=== PATIENT | female | born 1970 | race Caucasian/White ===

== ENCOUNTER 2020-03-09 15:10 | Emergency (ER) | payer SELFPAY ==
[2020-03-09 16:00] LABS: #Basophils 0.1 thou/uL (0.0-0.2); #Eosinphils 0.2 thou/uL (0.0-0.7); #Lymphocytes 3.7 thou/uL (1.20-3.40); #Monocytes 0.6 thou/uL (0.11-0.59); #Neutrophils 7.7 thou/uL (1.40-6.50); %Basophils 0.6 % (0.0-1.0); %Eosinophils 1.3 % (0.0-10.0); %Monocytes 5.2 % (0.0-10.0); %Neutrophils 62.8 % (42.0-75.0); Hemoglobin 14.9 g/dL (12.0-16.0); Mean Corpuscular HGB CONC 33.4 g/dL (32.0-36.0); Mean Corpuscular Hemoglobin 29.4 pg (27.0-31.0); Mean Corpuscular Volume 88.1 fL (78.0-98.0); Mean Platelet Volume 7.1 fL (7.4-10.4); Platelet Count 428 thou/uL (130-400); RBC Distribution Width 11.2 % (11.5-14.5); Red Blood Cell (RBC) Count 5.06 mill/uL (4.20-5.40); White Blood Cell (WBC) Count 12.2 thou/uL (4.8-10.8)
--- NOTE | 2020-03-09 16:15 | RAD ---
RIGHT FOOT THREE VIEWS: History: Foot ulcer Comparison: None FINDINGS: There is extensive soft tissue swelling surrounding the distal phalanx of the second toe. There appea r to be open wound of the distal phalanx second toe plantar aspect. No underlying osseous erosion is appreciated. Capsular calcifications along the lateral aspect of the great toe metatarsal phalangeal joint. Bone i sland of the second metatarsal head and neck. Large dorsal and plantar calcaneal spurs. Osseous erosion at the achilles insertion. IMPRESSION: Soft tissue swelling and what appears to be a bandage with radiopaque debris along the plantar aspect of the second toe distal phalanx. No underlying osseous erosions to suspect radiographic evidence of osteomyelitis. If clinically warranted, MR should be obtained. POS: GERTRUDIS
[2020-03-09 16:19] LABS: ALT (SGPT) 28 U/L (8-55); AST (SGOT) 16 U/L (5-34); Albumin 3.6 g/dL (3.5-5.0); Alkaline Phosphatase 269 U/L (40-110); Anion Gap 14 mmol/L (10-20); BUN (Urea Nitrogen) 14 mg/dL (7.0-18.7); Bilirubin, Total 0.6 mg/dL (0.2-1.2); CK (CPK) 109 U/L (29-168); CRP (Inflammatory) 1.18 mg/dL (= or < 0.5); Calc. Creatinine Clearance 0 mL/min (70-130); Carbon Dioxide 25 mmol/L (22-29); Chloride 101 mmol/L (98-107); Estimated GFR-MDRD 74; Globulin 3.8 g/dL (2.4-3.5); Glucose 286 mg/dL (70-105); Potassium 4.1 mmol/L (3.5-5.1); Protein, Total 7.4 g/dL (6.0-8.3); Sodium 136 mmol/L (136-145)
[2020-03-09] MEDS ORDERED: Cephalexin 250 MG CAP ONE (17:23)
[2020-03-09] MEDS ORDERED: Sulfameth/Trimethoprim DS 800-160mg TAB ONE (17:23)
== END 2020-03-09 17:44 | disposition home or self-care (01) ==
LOC: ERS 15:10
DX: E11.621 Type 2 diabetes mellitus with foot ulcer (principal); L97.519 Non-pressure chronic ulcer of other part of right foot with unspecified severity; E11.65 Type 2 diabetes mellitus with hyperglycemia; I10 Essential (primary) hypertension; E78.5 Hyperlipidemia, unspecified; F41.9 Anxiety disorder, unspecified
CPT/HCPCS: 36415; 80053; 82550; 85025; 86140

== ENCOUNTER 2020-03-26 15:05 | Emergency (ER) | payer SELFPAY ==
[~2020-03-26 15:05] MED LIST: Iopamidol-370 76% 500 ML 1 ML ONE
[2020-03-26] MEDS ORDERED: Morphine 4 MG/ML VIAL ONE (15:57)
[2020-03-26 16:02] LABS: #Basophils 0.1 thou/uL (0.0-0.2); #Eosinphils 0.2 thou/uL (0.0-0.7); #Lymphocytes 3.6 thou/uL (1.20-3.40); #Monocytes 0.7 thou/uL (0.11-0.59); #Neutrophils 6.8 thou/uL (1.40-6.50); %Basophils 0.6 % (0.0-1.0); %Eosinophils 1.8 % (0.0-10.0); %Lymphocytes 31.6 % (21.0-51.0); %Monocytes 6.3 % (0.0-10.0); %Neutrophils 59.8 % (42.0-75.0); Hemoglobin 14.1 g/dL (12.0-16.0); Mean Corpuscular HGB CONC 32.8 g/dL (32.0-36.0); Mean Corpuscular Hemoglobin 29.3 pg (27.0-31.0); Mean Corpuscular Volume 89.2 fL (78.0-98.0); Mean Platelet Volume 7.6 fL (7.4-10.4); Platelet Count 330 thou/uL (130-400); Red Blood Cell (RBC) Count 4.81 mill/uL (4.20-5.40); White Blood Cell (WBC) Count 11.4 thou/uL (4.8-10.8)
--- NOTE | 2020-03-26 16:10 | RAD ---
CHEST ONE VIEW: 03/26/20 INDICATION: History of emergency room examination. COMPARISON: Prior exam dated 10/04/19. FINDINGS: Lungs are clear. Heart size is normal. No acute osseous abnormality is evident. IMPRESSION: No acute cardiopulmonary abnormality. POS: BH
[2020-03-26 16:15] LABS: BHCG - Serum Negative (NEGATIVE); Pregs Control Background? CLEAR/WHITE (CLR/WHITE); Pregs Control Bar Appear? YES (CONTROL BAR)
[2020-03-26 16:24] LABS: ALT (SGPT) 36 U/L (8-55); AST (SGOT) 20 U/L (5-34); Albumin 3.8 g/dL (3.5-5.0); Alkaline Phosphatase 146 U/L (40-110); Anion Gap 12 mmol/L (10-20); BUN (Urea Nitrogen) 17 mg/dL (7.0-18.7); Bilirubin, Total 0.7 mg/dL (0.2-1.2); CK (CPK) 84 U/L (29-168); Calc. Creatinine Clearance 0 mL/min (70-130); Carbon Dioxide 26 mmol/L (22-29); Chloride 103 mmol/L (98-107); Estimated GFR-MDRD 60; Globulin 3.4 g/dL (2.4-3.5); Glucose 373 mg/dL (70-105); Protein, Total 7.2 g/dL (6.0-8.3); Sodium 137 mmol/L (136-145)
[2020-03-26] MEDS ORDERED: Lisinopril 10 MG TAB ONE (16:36)
[2020-03-26 16:44] LABS: Bilirubin Negative (Negative); Blood, Urine Trace (Negative); Clarity Clear (Clear); Glucose, Urine (Dipstick) Greater than 1000 mg/dL (Negative); Leukocyte Negative Leu/uL (Negative); Nitrite 1+ (Negative); Protein, Urine (Dipstick) Negative (Neg-Trace); RBC/HPF 0-3 HPF (0-3); Squamous Epithelial 0-3 HPF (0-3); Urobilinogen Normal mg/dL (Less than 2); WBC/HPF 0-3 HPF (0-3)
[2020-03-26 16:51] LABS: Bacteria/HPF 1+ HPF (None Seen)
--- NOTE | 2020-03-26 19:43 | CT ---
CTA OF THE ABDOMEN AND PELVIS WITH BILATERAL LOWER EXTREMITY RUNOFF 03/26/20 INDICATION: 50-year-old female with bilateral leg pain, right greater than left that started last night. Worsened throughout the night and into today. History of hypertension, diabetes. COMPARISON: None. TECHNIQUE: Multiple CTA images were obtained in an abdomen and pelvis with bilateral lower extremity runoff. Con trast was administered. 3D reformatted images were constructed from the raw data. FINDINGS: No hemodynamically significant stenosis, occlusion or aneurysmal formation is evident within the abdo men or pelvis. Arterial structures of both lower extremities demonstrate no focal hemodynamically sig nificant stenosis or occlusion. There is some mild atherosclerotic irregularity involving the distal right SFA and right popliteal artery. There is three vessel runoff to the level of the ankle bilatera lly. No definite acute abnormality is seen within the abdomen or pelvis. The gallbladder is surgically abs ent. The liver, pancreas, spleen, adrenal glands and kidneys are normal appearing. No free fluid, enlarged lymph nodes are evident. There is a normal appendix. There is moderate amount of retained stool within the colon. There are scattered degenerative and osteoarthritic changes. No definite acute osseous abnormality is evident. IMPRESSION: No hemodynamically significant stenosis, occlusion or aneurysmal formation demonstrated. POS: BH
== END 2020-03-26 17:25 | disposition home or self-care (01) ==
LOC: ERS 15:05
DX: M79.604 Pain in right leg (principal); M79.605 Pain in left leg; I10 Essential (primary) hypertension; E11.65 Type 2 diabetes mellitus with hyperglycemia; N39.0 Urinary tract infection, site not specified; I20.9 Angina pectoris, unspecified; E78.5 Hyperlipidemia, unspecified; F41.9 Anxiety disorder, unspecified; Z79.899 Other long term (current) drug therapy; Z79.4 Long term (current) use of insulin
CPT/HCPCS: 36415; 71045; 75635; 80053; 81003; 81015; 82550; 84484; 84703; 85025; 93005; 94760; 96374; J2270; Q9967

== ENCOUNTER 2021-07-06 11:56 | Observation (INO) | payer SELFPAY ==
[2021-07-06] MEDS ORDERED: Ondansetron ODT 4 MG TAB SL PRN (21:00)
[2021-07-06] MEDS ORDERED: Ondansetron PF 4 MG/2 ML Vial IVP PRN (21:00)
[2021-07-06] MEDS: Acetaminophen 325 MG TAB PO PRN (22:10)
[2021-07-06 23:03] VITALS: BMI 34.9
[2021-07-07] MEDS ORDERED: Dextrose 50% Abboject 50 ML SYRINGE SLOW IVP PRN (04:33)
[2021-07-07] MEDS ORDERED: HumaLOG 300 UNITS/3 ML VIAL SC PRN (04:33)
[2021-07-07] MEDS ORDERED: Dextrose 5% in Water 1,000 ML IV PRN (04:33)
[2021-07-07] MEDS: HumaLOG 300 UNITS/3 ML VIAL SC PRN ×3 (06:07→17:36)
[2021-07-07 08:58] LABS: Hemoglobin A1c 9.6 % (4.0-6.0)
[2021-07-07] MEDS ORDERED: Lisinopril 20 MG TAB PO SCH (09:00)
[2021-07-07] MEDS ORDERED: Enoxaparin Sodium 40 MG/0.4 ML SYRINGE SC SCH (09:00)
[2021-07-07] MEDS ORDERED: hydrALAZINE 20 MG/ML VIAL SLOW IVP PRN (09:03)
[2021-07-07] MEDS: Enoxaparin Sodium 40 MG/0.4 ML SYRINGE SC SCH (09:04)
[2021-07-07 10:01] LABS: Lactic Acid 1.5 mmol/L (0.5-2.2)
[2021-07-07] MEDS: Acetaminophen 325 MG TAB PO PRN (10:56)
[2021-07-07 15:13] LABS: #Basophils 0.1 thou/uL (0.0-0.2); #Eosinphils 0.2 thou/uL (0.0-0.7); #Monocytes 0.7 thou/uL (0.11-0.59); #Neutrophils 7.6 thou/uL (1.40-6.50); %Basophils 0.9 % (0.0-1.0); %Eosinophils 1.5 % (0.0-10.0); %Lymphocytes 31.8 % (21.0-51.0); %Monocytes 5.6 % (0.0-10.0); %Neutrophils 60.2 % (42.0-75.0); Hemoglobin 13.3 g/dL (12.0-16.0); Mean Corpuscular Hemoglobin 29.6 pg (27.0-31.0); Mean Corpuscular Volume 89.8 fL (78.0-98.0); Mean Platelet Volume 8.1 fL (7.4-10.4); Platelet Count 289 thou/uL (130-400); RBC Distribution Width 12.3 % (11.5-14.5); White Blood Cell (WBC) Count 12.7 thou/uL (4.8-10.8)
[2021-07-08 05:32] LABS: #Eosinphils 0.2 thou/uL (0.0-0.7); #Lymphocytes 4.2 thou/uL (1.20-3.40); #Monocytes 0.9 thou/uL (0.11-0.59); %Basophils 0.2 % (0.0-1.0); %Eosinophils 1.5 % (0.0-10.0); %Monocytes 6.9 % (0.0-10.0); %Neutrophils 57.4 % (42.0-75.0); Hemoglobin 13.1 g/dL (12.0-16.0); Mean Corpuscular HGB CONC 32.1 g/dL (32.0-36.0); Mean Corpuscular Hemoglobin 28.9 pg (27.0-31.0); Mean Corpuscular Volume 90.1 fL (78.0-98.0); Mean Platelet Volume 7.4 fL (7.4-10.4); Platelet Count 302 thou/uL (130-400); RBC Distribution Width 12.1 % (11.5-14.5); Red Blood Cell (RBC) Count 4.53 mill/uL (4.20-5.40); White Blood Cell (WBC) Count 12.2 thou/uL (4.8-10.8)
[2021-07-08] MEDS: HumaLOG 300 UNITS/3 ML VIAL SC PRN (06:36)
[2021-07-08] MEDS ORDERED: Lisinopril 20 MG TAB PO SCH (09:00)
[2021-07-08] MEDS: Enoxaparin Sodium 40 MG/0.4 ML SYRINGE SC SCH (09:20)
[2021-07-08 16:26] VITALS: BP 148/77; TEMP 98.4
== END 2021-07-08 20:07 | disposition home or self-care (01) ==
LOC: 2NO 11:56 → INTOOBSV 07-07 08:51 → OBSVTOIN 07-07 08:51
PROVIDERS: ADMIT Family Medicine; ATTEND Internal Medicine
DX: I11.9 Hypertensive heart disease without heart failure (principal); R55 Syncope and collapse; E11.9 Type 2 diabetes mellitus without complications; L08.9 Local infection of the skin and subcutaneous tissue, unspecified; I08.8 Other rheumatic multiple valve diseases; F19.10 Other psychoactive substance abuse, uncomplicated; E66.9 Obesity, unspecified; Z68.33 Body mass index [BMI] 33.0-33.9, adult; Z91.14 Patient's other noncompliance with medication regimen
CPT/HCPCS: 36415; 36416; 70450; 83036; 83605; 84146; 85025; 85652; 86140; 93306; 96372; G0378; J1650; J1815

== ENCOUNTER 2023-01-21 19:10 | Inpatient (IN) | payer SELFPAY ==
[2023-01-21 22:06] VITALS: BMI 35.3
[2023-01-21] MEDS ORDERED: Dextrose 5% in Water 1,000 ML IV PRN (23:22)
[2023-01-21] MEDS ORDERED: Dextrose 50% Abboject 50 ML SYRINGE SLOW IVP PRN (23:22)
[2023-01-21] MEDS ORDERED: Sodium Chloride 0.9% 1,000 ML IV SCH (23:30)
[2023-01-21] MEDS ORDERED: VANCOMYCIN 1.75 GM/500 ML BAG 1.75 GM in Premix Bag 1 BAG IVPB SCH (23:59)
[2023-01-22] MEDS: hydrALAZINE 20 MG/ML VIAL SLOW IVP PRN ×3 (00:03→17:05)
[2023-01-22] MEDS ORDERED: Cefepime 1 GM in Sodium Chloride 0.9% 100 ML IVPB SCH (02:00)
[2023-01-22 06:25] LABS: #Eosinphils 0.2 thou/uL (0.0-0.7); #Lymphocytes 2.5 thou/uL (1.20-3.40); #Monocytes 1.1 thou/uL (0.11-0.59); #Neutrophils 7.8 thou/uL (1.40-6.50); %Basophils 0.4 % (0.0-1.0); %Eosinophils 1.3 % (0.0-10.0); %Lymphocytes 21.8 % (21.0-51.0); %Monocytes 9.2 % (0.0-10.0); %Neutrophils 67.3 % (42.0-75.0); Hemoglobin 12.6 g/dL (12.0-16.0); Mean Corpuscular HGB CONC 33.5 g/dL (32.0-36.0); Mean Corpuscular Hemoglobin 29.8 pg (27.0-31.0); Mean Corpuscular Volume 88.8 fl (78.0-98.0); Mean Platelet Volume 7.9 fL (7.4-10.4); Platelet Count 332 10x3/uL (130-400); RBC Distribution Width 11.3 % (11.5-14.5); Red Blood Cell (RBC) Count 4.22 mill/uL (4.20-5.40); White Blood Cell (WBC) Count 11.5 10x3/uL (4.8-10.8)
[2023-01-22 06:47] LABS: ALT (SGPT) 11 U/L (8-55); AST (SGOT) 11 U/L (5-34); Albumin 3.1 g/dL (3.5-5.0); Alkaline Phosphatase 130 U/L (40-110); Anion Gap 10 mmol/L (10-20); BUN (Urea Nitrogen) 10 mg/dL (7.0-18.7); Bilirubin, Total 0.6 mg/dL (0.2-1.2); Calc. Creatinine Clearance 101 mL/min (70-130); Calcium 8.4 mg/dL (7.8-10.44); Carbon Dioxide 24 mmol/L (22-29); Chloride 105 mmol/L (98-107); Estimated GFR 82; Globulin 4.3 g/dL (2.4-3.5); Glucose 277 mg/dL (70-105); Potassium 3.4 mmol/L (3.5-5.1); Protein, Total 7.4 g/dL (6.0-8.3); Sodium 136 mmol/L (136-145)
[2023-01-22] MEDS ORDERED: Electrolyte Replacement Protocol 1 EACH FS SCH (07:45)
[2023-01-22] MEDS ORDERED: Potassium Chloride 20 MEQ TAB PO SCH (08:00)
[2023-01-22] MEDS ORDERED: Vancomycin 1.5 GRAM/300 ML BAG 1.5 GM in Premix Bag 1 BAG IVPB SCH (09:00)
[2023-01-22] MEDS: Heparin 5,000 UNITS/ML VIAL SC SCH ×3 (09:14→21:03)
[2023-01-22] MEDS: Amlodipine 5 MG TAB PO SCH (09:48)
[2023-01-22] MEDS ORDERED: Lorazepam 2 MG/ML VIAL SLOW IVP PRN (09:53)
[2023-01-22] MEDS: Potassium Chloride 20 MEQ in Premix Bag 1 BAG IVPB SCH ×2 (10:35→13:47)
[2023-01-22] MEDS: Cefepime 2 GM in Sodium Chloride 0.9% 100 ML IVPB SCH (13:47)
[2023-01-22] MEDS: Simvastatin 10 MG TAB PO SCH (21:05)
[2023-01-22] MEDS: HYDROcodone/Acetaminophen 5/325 mg Tablet PO PRN (21:06)
[2023-01-22] MEDS ORDERED: VANCOMYCIN 1.25 GM/250 ML BAG 1.25 GM in Premix Bag 1 BAG IVPB SCH (23:59)
[2023-01-23] MEDS: Cefepime 2 GM in Sodium Chloride 0.9% 100 ML IVPB SCH ×2 (01:52→13:55)
[2023-01-23 04:54] LABS: #Eosinphils 0.3 thou/uL (0.0-0.7); #Monocytes 0.9 thou/uL (0.11-0.59); %Basophils 0.4 % (0.0-1.0); %Eosinophils 2.7 % (0.0-10.0); %Lymphocytes 26.8 % (21.0-51.0); %Monocytes 8.3 % (0.0-10.0); %Neutrophils 61.8 % (42.0-75.0); Hemoglobin 12.4 g/dL (12.0-16.0); Mean Corpuscular HGB CONC 32.5 g/dL (32.0-36.0); Mean Corpuscular Hemoglobin 29.2 pg (27.0-31.0); Mean Corpuscular Volume 89.7 fl (78.0-98.0); Mean Platelet Volume 7.6 fL (7.4-10.4); Platelet Count 378 10x3/uL (130-400); RBC Distribution Width 11.4 % (11.5-14.5); Red Blood Cell (RBC) Count 4.23 mill/uL (4.20-5.40); White Blood Cell (WBC) Count 11.3 10x3/uL (4.8-10.8)
[2023-01-23 05:10] LABS: Hemoglobin A1c 10.7 % (4.0-6.0)
[2023-01-23 05:21] LABS: Anion Gap 12 mmol/L (10-20); BUN (Urea Nitrogen) 10 mg/dL (7.0-18.7); Calc. Creatinine Clearance 88 mL/min (70-130); Calcium 8.3 mg/dL (7.8-10.44); Carbon Dioxide 22 mmol/L (22-29); Chloride 106 mmol/L (98-107); Estimated GFR 69; Glucose 260 mg/dL (70-105); Potassium 3.8 mmol/L (3.5-5.1); Sodium 136 mmol/L (136-145)
[2023-01-23] MEDS ORDERED: FENTANYL 50 MCG/ML 1 ML VIAL ONE (06:51)
[2023-01-23] MEDS ORDERED: Dexmedetomidine 200 MCG/2 ML VIAL ONE (06:51)
[2023-01-23] MEDS ORDERED: Ondansetron PF 4 MG/2 ML Vial ONE (07:31)
[2023-01-23] MEDS ORDERED: PROPOFOL 200 MG/20 ML VIAL ONE (07:31)
[2023-01-23] MEDS ORDERED: Ondansetron HCl/PF 4 MG/2 ML Vial IVP PRN (08:14)
[2023-01-23] MEDS ORDERED: Promethazine HCl 25 MG/ML VIAL IM PRN (08:14)
[2023-01-23] MEDS: Lisinopril 20 MG TAB PO SCH (09:34)
[2023-01-23] MEDS: Amlodipine 5 MG TAB PO SCH (09:36)
[2023-01-23] MEDS: Heparin 5,000 UNITS/ML VIAL SC SCH ×3 (09:36→21:59)
[2023-01-23] MEDS: HYDROcodone/Acetaminophen 5/325 mg Tablet PO PRN ×2 (11:43→18:46)
[2023-01-23] MEDS: HumaLOG 300 UNITS/3 ML VIAL SC PRN (18:48)
[2023-01-23] MEDS: Simvastatin 10 MG TAB PO SCH (21:59)
[2023-01-23 23:26] LABS: Vancomycin, Trough 7.9 ug/mL
[2023-01-24] MEDS: VANCOMYCIN 1.25 GM/250 ML BAG 1.25 GM in Premix Bag 1 BAG IVPB SCH ×2 (01:53→12:43)
[2023-01-24] MEDS: Cefepime 2 GM in Sodium Chloride 0.9% 100 ML IVPB SCH ×2 (01:54→14:12)
[2023-01-24] MEDS: HYDROcodone/Acetaminophen 5/325 mg Tablet PO PRN ×2 (08:45→20:37)
[2023-01-24] MEDS: Amlodipine 5 MG TAB PO SCH (08:46)
[2023-01-24] MEDS: Lisinopril 20 MG TAB PO SCH (08:46)
[2023-01-24] MEDS: Heparin 5,000 UNITS/ML VIAL SC SCH ×3 (08:46→20:38)
[2023-01-24] MEDS: Simvastatin 10 MG TAB PO SCH (20:38)
[2023-01-25] MEDS: VANCOMYCIN 1.25 GM/250 ML BAG 1.25 GM in Premix Bag 1 BAG IVPB SCH ×2 (00:58→12:35)
[2023-01-25] MEDS: HYDROcodone/Acetaminophen 5/325 mg Tablet PO PRN ×2 (03:00→20:10)
[2023-01-25] MEDS: Cefepime 2 GM in Sodium Chloride 0.9% 100 ML IVPB SCH ×2 (03:00→15:17)
[2023-01-25] MEDS: HumaLOG 300 UNITS/3 ML VIAL SC PRN (06:17)
[2023-01-25 06:26] LABS: #Eosinphils 0.3 thou/uL (0.0-0.7); #Monocytes 0.8 thou/uL (0.11-0.59); #Neutrophils 5.9 thou/uL (1.40-6.50); %Basophils 0.4 % (0.0-1.0); %Eosinophils 3.3 % (0.0-10.0); %Lymphocytes 29.7 % (21.0-51.0); %Monocytes 8.3 % (0.0-10.0); %Neutrophils 58.3 % (42.0-75.0); Hemoglobin 11.4 g/dL (12.0-16.0); Mean Corpuscular HGB CONC 32.4 g/dL (32.0-36.0); Mean Corpuscular Hemoglobin 29.4 pg (27.0-31.0); Mean Corpuscular Volume 90.9 fl (78.0-98.0); Mean Platelet Volume 7.4 fL (7.4-10.4); Platelet Count 350 10x3/uL (130-400); RBC Distribution Width 11.2 % (11.5-14.5); Red Blood Cell (RBC) Count 3.86 mill/uL (4.20-5.40); White Blood Cell (WBC) Count 10.1 10x3/uL (4.8-10.8)
[2023-01-25 06:51] LABS: Anion Gap 9 mmol/L (10-20); BUN (Urea Nitrogen) 10 mg/dL (7.0-18.7); Calc. Creatinine Clearance 108 mL/min (70-130); Calcium 8.2 mg/dL (7.8-10.44); Carbon Dioxide 25 mmol/L (22-29); Chloride 108 mmol/L (98-107); Estimated GFR 88; Glucose 224 mg/dL (70-105); Potassium 3.9 mmol/L (3.5-5.1); Sodium 138 mmol/L (136-145)
[2023-01-25] MEDS: Heparin 5,000 UNITS/ML VIAL SC SCH ×3 (08:50→20:10)
[2023-01-25] MEDS: Lisinopril 20 MG TAB PO SCH (08:50)
[2023-01-25] MEDS: Amlodipine 5 MG TAB PO SCH (08:51)
[2023-01-25 11:46] LABS: Vancomycin, Trough 17.3 ug/mL
[2023-01-25] MEDS: Simvastatin 10 MG TAB PO SCH (20:10)
[2023-01-26] MEDS: VANCOMYCIN 1.25 GM/250 ML BAG 1.25 GM in Premix Bag 1 BAG IVPB SCH ×2 (00:33→11:58)
[2023-01-26] MEDS: Cefepime 2 GM in Sodium Chloride 0.9% 100 ML IVPB SCH ×2 (02:17→13:42)
[2023-01-26] MEDS: HumaLOG 300 UNITS/3 ML VIAL SC PRN ×2 (06:22→11:58)
[2023-01-26] MEDS: Amlodipine 5 MG TAB PO SCH (08:21)
[2023-01-26] MEDS: Lisinopril 20 MG TAB PO SCH (08:21)
[2023-01-26] MEDS: Heparin 5,000 UNITS/ML VIAL SC SCH ×3 (08:21→21:09)
[2023-01-26] MEDS: HYDROcodone/Acetaminophen 5/325 mg Tablet PO PRN ×3 (08:24→18:35)
[2023-01-26] MEDS: Simvastatin 10 MG TAB PO SCH (21:09)
[2023-01-27] MEDS: HYDROcodone/Acetaminophen 5/325 mg Tablet PO PRN ×2 (00:05→06:11)
[2023-01-27] MEDS: VANCOMYCIN 1.25 GM/250 ML BAG 1.25 GM in Premix Bag 1 BAG IVPB SCH ×2 (00:57→11:47)
[2023-01-27] MEDS: Cefepime 2 GM in Sodium Chloride 0.9% 100 ML IVPB SCH (03:19)
[2023-01-27] MEDS: HumaLOG 300 UNITS/3 ML VIAL SC PRN (06:11)
[2023-01-27] MEDS: Lisinopril 20 MG TAB PO SCH (08:03)
[2023-01-27] MEDS: Amlodipine 5 MG TAB PO SCH (08:03)
[2023-01-27] MEDS: Heparin 5,000 UNITS/ML VIAL SC SCH (08:03)
[2023-01-27 11:47] VITALS: TEMP 98.7
[2023-01-27 14:21] VITALS: BP 154/72
== END 2023-01-27 14:22 | disposition home or self-care (01) | DRG 853 ==
LOC: SJJU 19:10
PROVIDERS: ADMIT Internal Medicine; ATTEND Family Medicine
PROC: 0Y6Q0Z1 Detachment at Left 1st Toe, High, Open Approach (ICD-10-PCS; principal; 2023-01-23)
DX: A41.9 Sepsis, unspecified organism (principal); G93.41 Metabolic encephalopathy; M86.8X7 Other osteomyelitis, ankle and foot; N39.0 Urinary tract infection, site not specified; E11.52 Type 2 diabetes mellitus with diabetic peripheral angiopathy with gangrene; N17.9 Acute kidney failure, unspecified; E11.69 Type 2 diabetes mellitus with other specified complication; R65.20 Severe sepsis without septic shock; E11.319 Type 2 diabetes mellitus with unspecified diabetic retinopathy without macular edema; E11.42 Type 2 diabetes mellitus with diabetic polyneuropathy; I10 Essential (primary) hypertension; E78.5 Hyperlipidemia, unspecified; E87.6 Hypokalemia; E11.621 Type 2 diabetes mellitus with foot ulcer; L97.529 Non-pressure chronic ulcer of other part of left foot with unspecified severity; F41.9 Anxiety disorder, unspecified; E66.01 Morbid (severe) obesity due to excess calories; B96.20 Unspecified Escherichia coli [E. coli] as the cause of diseases classified elsewhere; D64.9 Anemia, unspecified; Z90.49 Acquired absence of other specified parts of digestive tract; Z86.73 Personal history of transient ischemic attack (TIA), and cerebral infarction without residual deficits; Z79.84 Long term (current) use of oral hypoglycemic drugs; Z79.899 Other long term (current) drug therapy; Z82.49 Family history of ischemic heart disease and other diseases of the circulatory system; Z79.4 Long term (current) use of insulin; Z68.35 Body mass index [BMI] 35.0-35.9, adult
CPT/HCPCS: 36415; 36416; 80048; 80053; 80202; 83036; 85025; 88305; 88311; 97139; J0360; J0692; J1644; J1815; J2060; J2405; J2704; J3010; J3370; J3480; J3490; J7050

== ENCOUNTER 2023-07-16 15:34 | Emergency (ER) | payer SELFPAY ==
[2023-07-16 16:57] LABS: #Basophils 0.1 thou/uL (0.0-0.2); #Eosinphils 0.2 thou/uL (0.0-0.7); #Monocytes 0.8 thou/uL (0.11-0.59); #Neutrophils 6.8 thou/uL (1.40-6.50); %Basophils 0.5 % (0.0-1.0); %Eosinophils 1.4 % (0.0-10.0); %Lymphocytes 29.2 % (21.0-51.0); %Monocytes 6.9 % (0.0-10.0); %Neutrophils 61.8 % (42.0-75.0); Hematocrit 41.7 % (36.0-47.0); Hemoglobin 14.2 g/dL (12.0-16.0); Mean Corpuscular HGB CONC 34.1 g/dL (32.0-36.0); Mean Corpuscular Hemoglobin 29.4 pg (27.0-31.0); Mean Corpuscular Volume 86.3 fl (78.0-98.0); Mean Platelet Volume 10.4 fL (7.4-10.4); Platelet Count 306 10x3/uL (130-400); RBC Distribution Width 12.3 % (11.5-14.5); Red Blood Cell (RBC) Count 4.83 mill/uL (4.20-5.40)
[2023-07-16 17:24] LABS: ALT (SGPT) 44 U/L (8-55); AST (SGOT) 28 U/L (5-34); Albumin 3.6 g/dL (3.5-5.0); Alkaline Phosphatase 174 U/L (40-110); Anion Gap 14 mmol/L (10-20); BUN (Urea Nitrogen) 13 mg/dL (9.8-20.1); Bilirubin, Total 0.5 mg/dL (0.2-1.2); Calc. Creatinine Clearance 0 mL/min (70-130); Carbon Dioxide 27 mmol/L (22-29); Chloride 102 mmol/L (98-107); Estimated GFR 60; Globulin 3.9 g/dL (2.4-3.5); Glucose 288 mg/dL (70-105); Potassium 3.9 mmol/L (3.5-5.1); Protein, Total 7.5 g/dL (6.0-8.3); Sodium 139 mmol/L (136-145)
[2023-07-16 17:27] LABS: Troponin I Less than 0.010 ng/mL (< 0.028)
[2023-07-16] MEDS ORDERED: hydrALAZINE 20 MG/ML VIAL ONE (17:38)
[2023-07-16] MEDS ORDERED: hydrALAZINE 25 MG TAB ONE (17:54)
== END 2023-07-16 18:02 | disposition home or self-care (01) ==
LOC: ERS 15:34
DX: E10.65 Type 1 diabetes mellitus with hyperglycemia (principal); I10 Essential (primary) hypertension; E78.5 Hyperlipidemia, unspecified; Z79.899 Other long term (current) drug therapy; Z79.84 Long term (current) use of oral hypoglycemic drugs
CPT/HCPCS: 36415; 36416; 70450; 71045; 80053; 84484; 85025; 93005; J0360

== ENCOUNTER 2024-05-07 10:18 | Emergency (ER) | payer OTHER | END 2024-05-07 12:03 | disposition home or self-care (01) | LOC: ERS 10:18 | DX: K59.00 Constipation, unspecified (principal); Z75.3 Unavailability and inaccessibility of health-care facilities; E11.9 Type 2 diabetes mellitus without complications; I10 Essential (primary) hypertension; E11.42 Type 2 diabetes mellitus with diabetic polyneuropathy; E78.5 Hyperlipidemia, unspecified; Z86.73 Personal history of transient ischemic attack (TIA), and cerebral infarction without residual deficits; Z79.899 Other long term (current) drug therapy; Z79.84 Long term (current) use of oral hypoglycemic drugs | CPT/HCPCS: 99282 ==

== ENCOUNTER 2024-07-24 22:19 | Inpatient (IN) | payer OTHER ==
[2024-07-25 00:38] VITALS: BMI 38.3
[2024-07-25] MEDS ORDERED: Glucagon 1 MG/ML KIT IM PRN (01:44)
[2024-07-25] MEDS ORDERED: Ondansetron ODT 4 MG TAB PO PRN (01:44)
[2024-07-25] MEDS ORDERED: Dextrose 5% in Water 1,000 ML IV PRN (01:44)
[2024-07-25] MEDS ORDERED: Dextrose 50% Abboject 50 ML SYRINGE SLOW IVP PRN (01:44)
[2024-07-25 05:04] LABS: #Basophils 0.06 10x3/uL (0.0-0.2); %Basophils 0.4 % (0.0-1.0); %Lymphocytes 20.3 % (21.0-51.0); %Monocytes 6.4 % (0.0-10.0); %Neutrophils 71.4 % (42.0-75.0); Hematocrit 37.4 % (36.0-47.0); Hemoglobin 12.1 g/dL (12.0-16.0); Mean Corpuscular HGB CONC 32.4 g/dL (32.0-36.0); Mean Corpuscular Hemoglobin 28.8 pg (27.0-31.0); Mean Platelet Volume 9.7 fL (7.4-10.4); Platelet Count 359 10x3/uL (130-400); RBC Distribution Width 12.4 % (11.5-14.5)
[2024-07-25] MEDS: Cefepime 2 GM in Sodium Chloride 0.9% 100 ML IVPB SCH (05:28)
[2024-07-25 05:33] LABS: ALT (SGPT) 33 U/L (8-55); AST (SGOT) 17 U/L (5-34); Albumin 2.7 g/dL (3.5-5.0); Alkaline Phosphatase 184 U/L (40-110); Anion Gap 11 mmol/L (10-20); BUN (Urea Nitrogen) 12 mg/dL (9.8-20.1); Bilirubin, Total 0.6 mg/dL (0.2-1.2); Calc. Creatinine Clearance 99 mL/min (70-130); Calcium 8.6 mg/dL (7.8-10.44); Carbon Dioxide 22 mmol/L (22-29); Chloride 107 mmol/L (98-107); Estimated GFR 70; Globulin 4.4 g/dL (2.4-3.5); Glucose 250 mg/dL (70-105); Potassium 3.7 mmol/L (3.5-5.1); Protein, Total 7.1 g/dL (6.0-8.3); Sodium 136 mmol/L (136-145)
[2024-07-25] MEDS: Insulin Lispro 100 UNIT/ML 10 ML VIAL SC PRN (05:45)
[2024-07-25] MEDS ORDERED: Lorazepam 0.5 MG TAB PO PRN (07:37)
[2024-07-25] MEDS ORDERED: Vancomycin (BATCH) 1.5 GM in Premix 1 BAG IVPB SCH (08:00)
[2024-07-25] MEDS: Losartan 25 MG TAB PO SCH (08:40)
[2024-07-25] MEDS: metFORMIN 850 MG TAB PO SCH (08:40)
[2024-07-25] MEDS: FLUoxetine HCl 20 MG CAP PO SCH (08:40)
[2024-07-25] MEDS: Enoxaparin 40 MG (0.4 mL) SYRINGE SC SCH (08:40)
[2024-07-25] MEDS: NIFEdipine XL 60 MG ER.TAB PO SCH (08:40)
[2024-07-25] MEDS: Atorvastatin Calcium 40 MG TAB PO SCH (08:40)
[2024-07-25] MEDS: Insulin Glargine 30 UNITS/0.3 ML VIAL SC SCH (08:41)
[2024-07-25] MEDS: Vancomycin 1 GM in Premix 1 BAG IVPB SCH (08:41)
[2024-07-25 11:00] VITALS: BMI 38.3
[2024-07-25] MEDS: Acetaminophen 325 MG TAB PO PRN (17:32)
[2024-07-26 06:28] LABS: Vancomycin, Random 23.8 ug/mL (See Comment)
[2024-07-26 10:21] LABS: Hemoglobin A1c 8.9 % (4.0-6.0)
[2024-07-26] MEDS: Lactated Ringer's 1,000 ML IV SCH (11:30)
[2024-07-26] MEDS ORDERED: Bupivacaine PF 0.5% 30 ML VIAL ONE (13:33)
[2024-07-26] MEDS ORDERED: Midazolam HCl 2 mg/2 ml Vial ONE (13:40)
[2024-07-26] MEDS ORDERED: PROPOFOL 20 ML ONE (13:41)
[2024-07-26] MEDS ORDERED: fentaNYL PF 100 MCG/2 ML SYRINGE ONE (13:41)
[2024-07-26] MEDS ORDERED: Lidocaine 2% PF 5 ML VIAL ONE (13:41)
[2024-07-26] MEDS ORDERED: Lidocaine 1% PF 5 ML VIAL ONE (14:06)
[2024-07-26] MEDS ORDERED: Ondansetron PF 4 MG/2 ML Vial ONE (14:25)
[2024-07-26] MEDS ORDERED: Dexamethasone 4 mg/ml Vial ONE (14:25)
[2024-07-26] MEDS ORDERED: traMADol HCl 50 MG TAB PO PRN (14:35)
[2024-07-26] MEDS: Insulin Regular, Human 100 UNIT/ML 10 ML VIAL SC PRN (17:56)
[2024-07-26] MEDS: fentaNYL 50 mcg/mL 1 mL Vial SLOW IVP PRN (19:27)
[2024-07-26] MEDS: traMADol HCl 50 MG TAB PO PRN (23:28)
[2024-07-26] MEDS ORDERED: Insulin Regular, Human 100 UNIT/ML 10 ML VIAL SC PRN (23:51)
[2024-07-27] MEDS: metFORMIN 850 MG TAB PO SCH (08:41)
[2024-07-27] MEDS ORDERED: Insulin Glargine 30 UNITS/0.3 ML VIAL SC SCH (18:25)
[2024-07-27] MEDS ORDERED: Insulin Lispro 100 UNIT/ML 10 ML VIAL SC PRN (18:27)
[2024-07-27] MEDS: Insulin Glargine 30 UNITS/0.3 ML VIAL SC SCH (18:31)
[2024-07-28] MEDS ORDERED: Insulin Glargine 30 UNITS/0.3 ML VIAL SC SCH (09:00)
[2024-07-28 09:07] LABS: Anion Gap 12 mmol/L (10-20); BUN (Urea Nitrogen) 19 mg/dL (9.8-20.1); Calc. Creatinine Clearance 111 mL/min (70-130); Calcium 8.4 mg/dL (7.8-10.44); Carbon Dioxide 22 mmol/L (22-29); Chloride 109 mmol/L (98-107); Estimated GFR 81; Glucose 110 mg/dL (70-105); Potassium 4.3 mmol/L (3.5-5.1); Sodium 139 mmol/L (136-145)
[2024-07-28 09:08] LABS: Hemoglobin 11.5 g/dL (12.0-16.0); Mean Corpuscular HGB CONC 31.9 g/dL (32.0-36.0); Mean Corpuscular Volume 90.9 fL (78.0-98.0); Mean Platelet Volume 10.7 fL (7.4-10.4); Platelet Count 316 10x3/uL (130-400); RBC Distribution Width 12.4 % (11.5-14.5); Red Blood Cell (RBC) Count 3.96 mill/uL (4.20-5.40)
[2024-07-28 10:14] LABS: Eosinophils 2 % (0-10); Lymphocytes 41 % (21-51); Monocytes 2 % (0-10); Neutrophil 54 % (42-75); Ovalocytes SLIGHT = 2-5 cells HPF (0-1); Platelet Adequacy Comment Platelets Normal; Polychromasia SLIGHT = 2-3 cells HPF (0-2)
[2024-07-28] MEDS: NIFEdipine XL 30 MG ER.TAB PO SCH (10:23)
[2024-07-28] MEDS: traMADol HCl 50 MG TAB PO SCH (10:26)
[2024-07-28] MEDS: Polyethylene Glycol 3350 17 GM Packet PO SCH ×2 (10:26→21:05)
[2024-07-28] MEDS: Insulin Glargine 30 UNITS/0.3 ML VIAL SC SCH (10:30)
[2024-07-28] MEDS: Insulin Lispro 100 UNIT/ML 10 ML VIAL SC PRN (14:46)
[2024-07-29] MEDS: metFORMIN 850 MG TAB PO SCH (08:37)
[2024-07-29] MEDS: NIFEdipine XL 90 MG ER.TAB PO SCH (08:38)
[2024-07-29] MEDS: Insulin Glargine 30 UNITS/0.3 ML VIAL SC SCH (08:39)
[2024-07-29] MEDS: HYDROcodone/Acetaminophen 5/325 mg Tablet PO SCH (14:43)
[2024-07-31 09:54] LABS: #Basophils 0.06 10x3/uL (0.0-0.2); %Basophils 0.5 % (0.0-1.0); %Eosinophils 1.7 % (0.0-10.0); %Lymphocytes 28.3 % (21.0-51.0); %Neutrophils 62.6 % (42.0-75.0); Hematocrit 40.2 % (36.0-47.0); Hemoglobin 12.7 g/dL (12.0-16.0); Mean Corpuscular HGB CONC 31.6 g/dL (32.0-36.0); Mean Corpuscular Hemoglobin 28.9 pg (27.0-31.0); Mean Corpuscular Volume 91.6 fL (78.0-98.0); Platelet Count 406 10x3/uL (130-400); RBC Distribution Width 12.3 % (11.5-14.5); Red Blood Cell (RBC) Count 4.39 mill/uL (4.20-5.40)
[2024-07-31 10:20] LABS: Anion Gap 12 mmol/L (10-20); BUN (Urea Nitrogen) 25 mg/dL (9.8-20.1); Calc. Creatinine Clearance 102 mL/min (70-130); Carbon Dioxide 22 mmol/L (22-29); Chloride 108 mmol/L (98-107); Estimated GFR 73; Glucose 126 mg/dL (70-105); Potassium 4.2 mmol/L (3.5-5.1); Sodium 138 mmol/L (136-145)
[2024-08-01 13:03] VITALS: BP 136/80; TEMP 98.3
== END 2024-08-01 13:55 | disposition home or self-care (01) | DRG 854 ==
LOC: SURG B 23:38 → OBSVTOIN 07-25 01:44
PROVIDERS: ADMIT Family Medicine; ATTEND Family Medicine
PROC: 3E03329 Introduction of Other Anti-infective into Peripheral Vein, Percutaneous Approach (ICD-10-PCS; 2024-07-25)
PROC: 0Y6N0ZB Detachment at Left Foot, Partial 2nd Ray, Open Approach (ICD-10-PCS; principal; 2024-07-26)
PROC: 0Y6N0ZC Detachment at Left Foot, Partial 3rd Ray, Open Approach (ICD-10-PCS; 2024-07-26)
DX: A41.9 Sepsis, unspecified organism (principal); E11.52 Type 2 diabetes mellitus with diabetic peripheral angiopathy with gangrene; L03.116 Cellulitis of left lower limb; I10 Essential (primary) hypertension; I16.0 Hypertensive urgency; E78.5 Hyperlipidemia, unspecified; E11.628 Type 2 diabetes mellitus with other skin complications; E11.621 Type 2 diabetes mellitus with foot ulcer; L97.502 Non-pressure chronic ulcer of other part of unspecified foot with fat layer exposed; E11.39 Type 2 diabetes mellitus with other diabetic ophthalmic complication; H54.7 Unspecified visual loss; R53.81 Other malaise; Z86.73 Personal history of transient ischemic attack (TIA), and cerebral infarction without residual deficits; Z79.899 Other long term (current) drug therapy; Z79.84 Long term (current) use of oral hypoglycemic drugs; Z90.49 Acquired absence of other specified parts of digestive tract; Z82.49 Family history of ischemic heart disease and other diseases of the circulatory system; Z83.3 Family history of diabetes mellitus
CPT/HCPCS: 36415; 36416; 80048; 80053; 80202; 82565; 83036; 85025; 88305; 88311; 97139; J0665; J0692; J1100; J1650; J1815; J2001; J2250; J2405; J2704; J3010; J3370-JW; J7120

== ENCOUNTER 2025-09-14 23:35 | Inpatient (IN) | payer OTHER ==
[2025-09-15 02:18] VITALS: BMI 39.3
[2025-09-15] MEDS ORDERED: Dextrose 50% Abboject 50 ML SYRINGE SLOW IVP PRN (04:32)
[2025-09-15] MEDS ORDERED: Glucagon 1 MG/ML KIT IM PRN (04:32)
[2025-09-15] MEDS ORDERED: Guaifenesin DM 100-10/5 ML UDCUP PO PRN (04:33)
[2025-09-15] MEDS: Acetaminophen 325 MG TAB PO PRN (05:46)
[2025-09-15 07:03] LABS: #Basophils 0.04 10x3/uL (0.0-0.2); #Eosinophils 0.13 10x3/uL (0.0-0.7); #Monocytes 0.75 10x3/uL (0.11-0.59); #Neutrophils 5.96 10x3/uL (1.40-6.50); %Basophils 0.4 % (0.0-1.0); %Eosinophils 1.2 % (0.0-10.0); %Lymphocytes 37.4 % (21.0-51.0); %Monocytes 6.8 % (0.0-10.0); %Neutrophils 53.8 % (42.0-75.0); Hematocrit 40.2 % (36.0-47.0); Hemoglobin 13.5 g/dL (12.0-16.0); Mean Corpuscular Hemoglobin 29.3 pg (27.0-31.0); Mean Corpuscular Volume 87.2 fL (78.0-98.0); Platelet Count 285 10x3/uL (130-400); Red Blood Cell (RBC) Count 4.61 mill/uL (4.20-5.40); White Blood Cell (WBC) Count 11.06 10x3/uL (4.8-10.8)
[2025-09-15 07:17] LABS: Anion Gap 11 mmol/L (10-20); BUN (Urea Nitrogen) 13 mg/dL (9.8-20.1); Calc. Creatinine Clearance 104 mL/min (70-130); Calcium 8.1 mg/dL (7.8-10.44); Carbon Dioxide 24 mmol/L (22-29); Chloride 107 mmol/L (98-107); Glucose 244 mg/dL (70-105); Potassium 4.1 mmol/L (3.5-5.1); Sodium 138 mmol/L (136-145)
[2025-09-15] MEDS: Losartan 25 MG TAB PO SCH (08:46)
[2025-09-15] MEDS: Insulin Glargine 30 UNITS/0.3 ML VIAL SC SCH (08:47)
[2025-09-15] MEDS: NIFEdipine XL 90 MG ER.TAB PO SCH (08:47)
[2025-09-15] MEDS: Enoxaparin 40 MG (0.4 mL) SYRINGE SC SCH (08:47)
[2025-09-15] MEDS: Metoprolol Succinate XL 25 MG ER.TAB PO SCH (08:47)
[2025-09-15] MEDS ORDERED: Non-Formulary Item 1 EACH (Losartan [Cozaar] 50 MG Tab) PO SCH (09:00)
[2025-09-15] MEDS: Ondansetron PF 4 MG/2 ML Vial IVP PRN (17:14)
[2025-09-16 05:31] LABS: Hematocrit 39.0 % (36.0-47.0); Hemoglobin 12.8 g/dL (12.0-16.0); Mean Corpuscular Hemoglobin 29.7 pg (27.0-31.0); Mean Corpuscular Volume 90.5 fL (78.0-98.0); Platelet Count 308 10x3/uL (130-400); Red Blood Cell (RBC) Count 4.31 mill/uL (4.20-5.40); White Blood Cell (WBC) Count 12.34 10x3/uL (4.8-10.8)
[2025-09-16 05:33] LABS: Anion Gap 12 mmol/L (10-20); BUN (Urea Nitrogen) 20 mg/dL (9.8-20.1); Calc. Creatinine Clearance 68 mL/min (70-130); Calcium 8.4 mg/dL (7.8-10.44); Carbon Dioxide 24 mmol/L (22-29); Chloride 107 mmol/L (98-107); Glucose 188 mg/dL (70-105); Potassium 4.0 mmol/L (3.5-5.1); Sodium 139 mmol/L (136-145)
[2025-09-16] MEDS: NIFEdipine XL 60 MG ER.TAB PO SCH (08:57)
[2025-09-16] MEDS: Calcium Carbonate 500 MG ChewTAB PO PRN (21:50)
[2025-09-17 04:41] LABS: Hematocrit 41.2 % (36.0-47.0); Hemoglobin 13.2 g/dL (12.0-16.0); Mean Corpuscular Hemoglobin 29.1 pg (27.0-31.0); Mean Corpuscular Volume 90.7 fL (78.0-98.0); Platelet Count 293 10x3/uL (130-400); Red Blood Cell (RBC) Count 4.54 mill/uL (4.20-5.40); White Blood Cell (WBC) Count 12.05 10x3/uL (4.8-10.8)
[2025-09-17 04:59] LABS: Anion Gap 11 mmol/L (10-20); BUN (Urea Nitrogen) 22 mg/dL (9.8-20.1); Calc. Creatinine Clearance 74 mL/min (70-130); Calcium 8.7 mg/dL (7.8-10.44); Carbon Dioxide 26 mmol/L (22-29); Chloride 107 mmol/L (98-107); Glucose 185 mg/dL (70-105); Potassium 4.0 mmol/L (3.5-5.1); Sodium 140 mmol/L (136-145)
[2025-09-17] MEDS: hydrALAZINE 20 MG/ML VIAL SLOW IVP PRN (06:27)
[2025-09-17 07:46] VITALS: TEMP 97.9
[2025-09-17] MEDS: Gabapentin 100 MG CAP PO SCH (11:04)
[2025-09-17 12:18] VITALS: BP 116/56
[2025-09-18] MEDS ORDERED: Gabapentin 100 MG CAP PO SCH (09:00)
== END 2025-09-17 15:35 | disposition home or self-care (01) | DRG 305 ==
LOC: 2NO 09-15 02:03 → OBSVTOIN 09-15 09:35
PROVIDERS: ADMIT Internal Medicine; ATTEND Internal Medicine
DX: I16.1 Hypertensive emergency (principal); N17.9 Acute kidney failure, unspecified; I10 Essential (primary) hypertension; F15.10 Other stimulant abuse, uncomplicated; E11.9 Type 2 diabetes mellitus without complications; Z98.891 History of uterine scar from previous surgery; Z89.412 Acquired absence of left great toe; Z90.49 Acquired absence of other specified parts of digestive tract; Z98.890 Other specified postprocedural states; Z79.4 Long term (current) use of insulin; Z79.899 Other long term (current) drug therapy; Z79.84 Long term (current) use of oral hypoglycemic drugs
CPT/HCPCS: 36415; 36416; 80048; 83036; 85025; 85027; 93306; 96372; G0378; J0360; J1650; J1815; J2405